=== PATIENT | female | born 1970 | race Caucasian/White ===

== ENCOUNTER 2020-05-07 08:03 | Outpatient (CLI) | payer BC, SELFPAY ==
--- NOTE | ~2020-05-07 | MM_ITS ---
EXAMINATION: MM screening mike BI w felipe HISTORY: Screening TECHNIQUE: Craniocaudal and mediolateral oblique 3-D tomosynthesis images were obtained and synthetic 2-D images were generated. CAD analysis was submitted and interpreted. COMPARISON: Comparison to multiple prior studies sequentially, with oldest reviewed study dated 08/20. BREAST PARENCHYMAL COMPOSITION: The breasts are heterogeneously dense, which may obscure small masses . FINDINGS: There is no evidence of suspicious mass, calcification, or architectural distortion to sugg est malignancy in either breast. There has been no suspicious interval change. IMPRESSION: 1. No mammographic evidence of malignancy. 2. Recommend routine screening mammography in one year. BI-RADS Category 1: Negative Reviewed, dictated and finalized at location A. L VIAL SETTER
== END 2020-05-07 08:04 | disposition home or self-care (01) ==
PROVIDERS: PCP Family Medicine; Visit Provider Obstetrics & Gynecology
DX: Z12.31 Encounter for screening mammogram for malignant neoplasm of breast (principal)
CPT/HCPCS: 77063; 77067

== ENCOUNTER 2021-07-09 07:54 | Outpatient (CLI) | payer BC, SELFPAY ==
--- NOTE | ~2021-07-09 | MM_ITS ---
EXAMINATION: MM screening mike BI w felipe HISTORY: Screening TECHNIQUE: Craniocaudal and mediolateral oblique 3-D tomosynthesis images were obtained and synthetic 2-D images were generated. CAD analysis was submitted and interpreted. COMPARISON: Comparison to multiple prior studies sequentially, with oldest reviewed study dated 08/26. BREAST PARENCHYMAL COMPOSITION: There are scattered areas of fibroglandular density. FINDINGS: There is no evidence of suspicious mass, calcification, or architectural distortion to sugg est malignancy in either breast. There has been no suspicious interval change. IMPRESSION: 1. No mammographic evidence of malignancy. 2. Recommend routine screening mammography in one year. BI-RADS Category 1: Negative Reviewed, dictated and finalized at location A.
== END 2021-07-09 07:55 | disposition home or self-care (01) ==
PROVIDERS: PCP Family Medicine; Visit Provider Obstetrics & Gynecology
DX: Z12.31 Encounter for screening mammogram for malignant neoplasm of breast (principal)
CPT/HCPCS: 77063; 77067

== ENCOUNTER 2021-11-21 09:25 | Emergency (ER) | payer BC, SELFPAY ==
[2021-11-21 09:32] VITALS: BP 138/97; PULSE 99; RESP 16; TEMP 37; O2SAT 100
--- NOTE | 2021-11-21 09:32 | ED.URI ---
HPI - URI/Sore Throat General Chief Complaint: Upper Respiratory Infection Stated Complaint: sore throat Time Seen by Provider: 11/21/21 09:32 Source: patient and RN notes reviewed History of Present Illness HPI Narrative: Patient is a 51-year-old female who presents the urgent care with complaints of body aches, fatigue, sore throat, bilateral otalgia. Patient states that it started on Sunday and she has been taking Tylenol, ibuprofen and DayQuil. Patient states her main concern is a severe sore throat. Denies of any ill exposures. Denies any history of COVID positive test. Patient states she did take an at home COVID test on Sunday, which was negative. No other acute complaints. No acute distress noted. Patient aware of the plan of care. Some parts of this dictation were generated by voice recognition software and may contain typographical and/or grammatical inaccuracies. Related Data Home Medications Medication Instructions Recorded Confirmed estradiol 1 mg tablet 1 mg PO DAILY 11/21/21 11/21/21 Allergies Allergy/AdvReac Type Severity Reaction Status Date / Time Penicillins Allergy Mild Unknown Verified 11/21/21 09:41 Sulfa (Sulfonamide Allergy Mild Unknown Verified 11/21/21 09:41 Antibiotics) Review of Systems Review of Systems: CONSTITUTIONAL: Denies fever, chills, or sweats. EYES: Denies visual changes, redness, or discharge. ENT: Denies rhinorrhea, congestion,. Reports of severe sore throat and bilateral otalgia CARDIOVASCULAR: Denies chest pain, palpitations, or edema. RESPIRATORY: Denies cough or dyspnea. GASTROINTESTINAL: Denies abdominal pain, nausea, vomiting, or diarrhea. GENITOURINARY: Denies dysuria or hematuria. SKIN: Denies rash or itching. MUSCULOSKELETAL: Denies back pain, joint pain. Reports of fatigue and body aches NEUROLOGIC: Denies headache, numbness, or weakness. All other systems reviewed are negative, except as documented in HPI. [facility] Past Medical History Medical History (Updated 11/21/21 @ 09:55 by CHRISTEL Peng) Asthma Bronchitis Endometriosis Migraines Ovarian cyst Pneumonia induced hypertension UTI (urinary tract infection) Surgical History Surgical History Endometriosis determined by laparoscopy Hx of appendectomy Family History Family History Mother Diabetes mellitus Family history of elevated blood lipids Father Family history of elevated blood lipids CHF (congestive heart failure) Grandparent Family history of cardiovascular disease Social History Social History Smoking status: Current every day smoker Tobacco type: cigarettes Second hand tobacco smoke exposure: Yes Alcohol intake: current Gender identity (if verbalized by the patient): Female Comments At the time of my signature, I reviewed and agree with the nursing past medical, surgical, social, and family history. There is no relevant family history pertinent to the patient complaint. Exam Narrative: GENERAL: This is a well-nourished, well-developed patient, in no apparent distress. Appears fatigued HEAD: normocephalic, atraumatic. EYES: PERRL. Sclera clear/white. Vision is grossly intact. EARS: External ears normal, auditory canals clear and without drainage, TMs normal without perforation. Hearing grossly intact. NOSE: External nose normal with no obvious nasal discharge, nares without redness, no rhinorrhea. THROAT: Mucous membranes moist, posterior pharynx clear. Mild postnasal drainage NECK: Neck supple, non-tender without lymphadenopathy CARDIOVASCULAR: Regular rate and rhythm without murmurs, gallops, or rubs. RESPIRATORY: Clear to auscultation. Breath sounds equal bilaterally. No wheezes, rales, or rhonchi. SKIN: warm, intact with no suspicious lesions or rash, good texture and tur
== END 2021-11-21 10:12 | disposition home or self-care (01) ==
PROVIDERS: Emergency Provider Nurse Practitioner Family; PCP Family Medicine
DX: U07.1 COVID-19 (principal); N80.9 Endometriosis, unspecified
CPT/HCPCS: 87426; 99213; C9803; G0463

== ENCOUNTER 2022-02-02 18:22 | Emergency (ER) | payer BC, SELFPAY ==
[2022-02-02 18:24] VITALS: BP 143/84; PULSE 81; RESP 18; TEMP 36.3; O2SAT 100
[2022-02-02 19:01] LABS: Basophils Percent Auto 0.2 % (0.2-1.2); Eosinophils Absolute Auto 0.1 K/mm3 (0-0.3); Eosinophils Percent Auto 0.6 % (0-4.4); Hematocrit 40.3 % (37.0-47.0); Hemoglobin 13.7 g/dL (12.0-15.0); Immature Granulocyte Absolute 0.03 K/mm3 (0.00-0.031); Immature Granulocyte Percent A 0.3 % (0-0.5); Lymphocytes Absolute Auto 2.18 K/mm3 (0.9-3.2); Lymphocytes Percent Auto 23.4 % (18.3-44.2); Mean Corpuscular Hemoglobin 30.9 pg (26-34); Mean Platelet Volume 10.7 fl (7.4-10.4); Monocytes Absolute Auto 0.3 K/mm3 (0.1-0.6); Monocytes Percent Auto 3.3 % (2.6-8.5); Neutrophils Absolute Auto 6.7 K/mm3 (1.3-6.7); Neutrophils Percent Auto 72.2 % (45.5-73.1); Platelet Count Result 234 k/mm3 (150-375); Red Blood Count 4.43 M/mm3 (4.2-5.4); Red Cell Distribution Width 11.9 % (11.5-14.5); White Blood Count 9.3 K/mm3 (4.5-10.0)
[2022-02-02 19:18] LABS: Alanine Aminotransferase 24 U/L (6-35); Albumin Level 4.1 g/dL (3.5-5.1); Alkaline Phosphatase 62 U/L (38-126); Anion Gap 12 mmol/L (8-16); Aspartate Amino Transferase 29 U/L (14-36); Bilirubin,Total 0.4 mg/dL (0.2-1.3); Blood Urea Nitrogen 13 mg/dL (7-17); Calcium 8.5 mg/dL (8.4-10.2); Carbon Dioxide 26 mmol/L (22-30); Chloride 103 mmol/L (98-107); Estimated CRCL calculation 69 ml/min; Estimated Glomerular Filt Rate > 60; Glucose 122 mg/dL (65-110); Lipase 85 U/L (23-300); Potassium 3.5 mmol/L (3.4-5.0); Sodium 141 mmol/L (137-145)
[2022-02-02 20:35] LABS: Add Urine Microscopic? YES; Appearance Urine Cloudy (Clear); Bilirubin Urine Negative (Negative); Blood Urine 3+ (Negative); Color Urine Amber (Yellow); Glucose Urine UA Negative (Negative); Ketones Urine Negative (Negative); Leukocyte Esterase Ur Negative LEU/UL (Negative); Mucus Urine Heavy /lpf; Nitrate Urine Negative (Negative); Protein Urine 2+ mg/dL (Negative); RBC Urine >75 /hpf (0-2); Squamous Epithelial Cell Urine Many /hpf (Few); Urobilinogen Urine Negative mg/dL (<2.0); WBC Urine 31-50 /hpf
[2022-02-02 20:38] LABS: Specific Grav Ur 1.032 (1.001-1.035)
--- NOTE | 2022-02-02 21:17 | PC.NURSE ---
2104 Called waiting room no response. 2115 Called waiting room no response.
== END 2022-02-02 21:48 | disposition left against medical advice (07) ==
PROVIDERS: Emergency Provider Emergency Medicine; PCP Family Medicine
DX: N93.9 Abnormal uterine and vaginal bleeding, unspecified (principal)
CPT/HCPCS: 36415; 80053; 81001; 83690; 85025; 87086; 87088; 99199

== ENCOUNTER 2022-05-12 08:30 | Outpatient (CLI) | payer BC, SELFPAY ==
[2022-05-12 19:43] LABS: Cholesterol 252 mg/dL (0-200); HDL Direct 50 mg/dL; Triglycerides 192 mg/dL (<150)
[2022-05-12 19:58] LABS: LDL Cholesterol Direct 138 mg/dL
[2022-05-12 20:25] LABS: Free T4 Free Thyroxine 0.88 ng/mL (0.78-2.19); Vitamin D 25 Hydroxy 37.3 ng/mL
== END 2022-05-12 08:31 | disposition home or self-care (01) ==
LOC: ANHGOSHLAB 08:32
PROVIDERS: PCP Family Medicine; Visit Provider Family Medicine
DX: R53.83 Other fatigue (principal); R73.9 Hyperglycemia, unspecified; Z13.220 Encounter for screening for lipoid disorders; E55.9 Vitamin D deficiency, unspecified
CPT/HCPCS: 36415; 80061; 82306; 83036; 84439; 84443

== ENCOUNTER 2022-09-21 07:25 | Outpatient (CLI) | payer BC, SELFPAY ==
--- NOTE | ~2022-09-21 | MM_ITS ---
EXAMINATION: MM screening mike BI w felipe HISTORY: Screening mammogram TECHNIQUE: Craniocaudal and mediolateral oblique 3-D tomosynthesis images were obtained and synthetic 2-D images were generated. CAD analysis was submitted and interpreted. COMPARISON: July 2021, May 07, 2020, May 02, 2019 bilateral screening mammogram examinations BREAST PARENCHYMAL COMPOSITION: The breasts are heterogeneously dense, which may obscure small masses . FINDINGS: There is a biopsy marker on the left; history of prior benign left breast biopsy. There is no evidence of suspicious mass, calcification, or architectural distortion to suggest malignancy in e ither breast. There has been no suspicious interval change. IMPRESSION: 1. No mammographic evidence of malignancy. 2. Recommend routine screening mammography in one year. BI-RADS Category 1: Negative Reviewed, dictated and finalized at location A.
== END 2022-09-21 07:26 | disposition home or self-care (01) ==
LOC: ANHIMG 07:27
PROVIDERS: PCP Family Medicine; Visit Provider Obstetrics & Gynecology
DX: Z12.31 Encounter for screening mammogram for malignant neoplasm of breast (principal)
CPT/HCPCS: 77063; 77067

== ENCOUNTER 2023-09-25 08:09 | Outpatient (CLI) | payer BC, SELFPAY ==
[2023-09-25 12:57] LABS: Basophils Absolute Auto 0.1 K/mm3 (0.0-0.1); Basophils Percent Auto 1.2 % (0.2-1.2); Eosinophils Absolute Auto 0.2 K/mm3 (0-0.3); Eosinophils Percent Auto 4.2 % (0-4.4); Hematocrit 41.7 % (37.0-47.0); Hemoglobin 13.5 g/dL (12.0-15.0); Immature Granulocyte Absolute 0.01 K/mm3 (0.00-0.031); Immature Granulocyte Percent A 0.2 % (0-0.5); Lymphocytes Absolute Auto 1.38 K/mm3 (0.9-3.2); Lymphocytes Percent Auto 32.5 % (18.3-44.2); Mean Corpuscular HGB Conc 32.4 g/dl (32-36); Mean Corpuscular Hemoglobin 30.8 pg (26-34); Mean Platelet Volume 11.4 fl (7.4-10.4); Monocytes Absolute Auto 0.3 K/mm3 (0.1-0.6); Monocytes Percent Auto 7.5 % (2.6-8.5); Neutrophils Absolute Auto 2.3 K/mm3 (1.3-6.7); Neutrophils Percent Auto 54.4 % (45.5-73.1); Platelet Count Result 214 k/mm3 (150-375); Red Blood Count 4.39 M/mm3 (4.2-5.4); Red Cell Distribution Width 11.9 % (11.5-14.5); White Blood Count 4.3 K/mm3 (4.5-10.0)
[2023-09-25 13:11] LABS: Alanine Aminotransferase 24 U/L (6-35); Albumin Level 4.3 g/dL (3.5-5.1); Alkaline Phosphatase 60 U/L (38-126); Anion Gap 6 mmol/L (4-12); Aspartate Amino Transferase 45 U/L (14-36); Bilirubin,Total 0.5 mg/dL (0.2-1.3); Blood Urea Nitrogen 16 mg/dL (7-17); Calcium 9.3 mg/dL (8.4-10.2); Carbon Dioxide 29 mmol/L (22-30); Chloride 106 mmol/L (98-107); Cholesterol 241 mg/dL (0-200); Estimated Glomerular Filt Rate > 60; Glucose 79 mg/dL (65-110); HDL Direct 42 mg/dL; Potassium 4.9 mmol/L (3.4-5.0); Sodium 141 mmol/L (137-145); Triglycerides 244 mg/dL (<150)
[2023-09-25 13:16] LABS: LDL Cholesterol Direct 155 mg/dL
[2023-09-25 13:35] LABS: Thyroid Stimulating Hormone 0.023 uIU/mL (0.465-4.680)
[2023-09-25 13:51] LABS: Hemoglobin A1C 5.2 % (<5.7)
[2023-09-25 14:07] LABS: Free T4 Free Thyroxine 0.88 ng/mL (0.78-2.19); Vitamin D 25 Hydroxy 49.3 ng/mL
== END 2023-09-25 08:10 | disposition home or self-care (01) ==
LOC: ANHGOSHLAB 08:10
PROVIDERS: PCP Emergency Medicine; Visit Provider Family Medicine
DX: E78.5 Hyperlipidemia, unspecified (principal); E55.9 Vitamin D deficiency, unspecified; R53.83 Other fatigue; R73.9 Hyperglycemia, unspecified
CPT/HCPCS: 36415; 80053; 80061; 82306; 83036; 84439; 84443; 85025

== ENCOUNTER 2023-11-22 07:21 | Outpatient (CLI) | payer BC, SELFPAY ==
--- NOTE | ~2023-11-22 | MM_ITS ---
EXAMINATION: MM screening mike BI w felipe HISTORY: Screening TECHNIQUE: Craniocaudal and mediolateral oblique 3-D tomosynthesis images were obtained and synthetic 2-D images were generated. CAD analysis was submitted and interpreted. COMPARISON: Comparison to multiple prior studies sequentially, with oldest reviewed study dated 05/07. BREAST PARENCHYMAL COMPOSITION: Not dense: There are scattered areas of fibroglandular density. FINDINGS: There are developing asymmetries in the lower central aspect of the right breast, middle th ird. The left breast is stable without evidence for malignancy. IMPRESSION: 1. Developing right breast asymmetries. 2. Additional mammographic views and possible breast ultrasound are recommended. BI-RADS Category 0: Incomplete: Needs additional imaging evaluation. Reviewed, dictated and finalized at location B. IMPRESSION: 1. Developing right breast asymmetries. 2. Additional mammographic views and possible breast ultrasound are recommended . BI-RADS Category 0: Incomplete: Needs additional imaging evaluation.
== END 2023-11-22 07:22 | disposition home or self-care (01) ==
LOC: ANHIMG 07:22
PROVIDERS: PCP Emergency Medicine; Visit Provider Obstetrics & Gynecology
DX: Z12.31 Encounter for screening mammogram for malignant neoplasm of breast (principal); N64.89 Other specified disorders of breast
CPT/HCPCS: 77063; 77067

== ENCOUNTER 2023-12-04 08:11 | Outpatient (CLI) | payer BC, SELFPAY ==
[2023-12-04 13:13] LABS: Alanine Aminotransferase 20 U/L (6-35); Albumin Level 4.2 g/dL (3.5-5.1); Alkaline Phosphatase 60 U/L (38-126); Anion Gap 12 mmol/L (4-12); Aspartate Amino Transferase 39 U/L (14-36); Bilirubin,Total 0.6 mg/dL (0.2-1.3); Blood Urea Nitrogen 17 mg/dL (7-17); Calcium 9.2 mg/dL (8.4-10.2); Carbon Dioxide 25 mmol/L (22-30); Chloride 102 mmol/L (98-107); Estimated Glomerular Filt Rate > 60; Glucose 73 mg/dL (65-110); Potassium 3.9 mmol/L (3.4-5.0); Sodium 139 mmol/L (137-145)
[2023-12-04 13:40] LABS: Thyroid Stimulating Hormone < 0.015 uIU/mL (0.465-4.680); Total Triiodothyronine (T3) 1.31 NG/ML (0.97-1.69)
[2023-12-04 14:42] LABS: Free T4 Free Thyroxine 0.89 ng/mL (0.78-2.19)
== END 2023-12-04 08:12 | disposition home or self-care (01) ==
LOC: ANHGOSHLAB 08:13
PROVIDERS: PCP Family Medicine; Visit Provider Emergency Medicine
DX: R94.6 Abnormal results of thyroid function studies (principal); R74.8 Abnormal levels of other serum enzymes
CPT/HCPCS: 36415; 80053; 84439; 84443; 84480

== ENCOUNTER 2023-12-27 14:05 | Outpatient (CLI) | payer BC, SELFPAY ==
[2023-12-27 19:32] LABS: Thyroid Stimulating Hormone 0.869 uIU/mL (0.465-4.680)
== END 2023-12-27 14:06 | disposition home or self-care (01) ==
LOC: ANHGOSHLAB 14:06
PROVIDERS: PCP Family Medicine; Visit Provider Family Medicine
DX: R94.6 Abnormal results of thyroid function studies (principal)
CPT/HCPCS: 36415; 84443

== ENCOUNTER 2024-01-02 14:06 | Outpatient (CLI) | payer BC, SELFPAY ==
--- NOTE | ~2024-01-02 | MMUS_ITS ---
EXAMINATION: US breast RT complete, MM diagnostic mike RT w felipe HISTORY: Follow-up right breast asymmetries TECHNIQUE: Additional 3-D tomosynthesis images of the right breast were performed and synthetic 2-D i mages were generated. CAD analysis was submitted and interpreted. High resolution complete right jun st ultrasound was performed. COMPARISON: Comparison to multiple prior studies sequentially, with oldest reviewed study dated 05/07. BREAST PARENCHYMAL COMPOSITION: Not dense: There are scattered areas of fibroglandular density. FINDINGS: MAMMOGRAPHIC FINDINGS: There are no suspicious masses, calcifications or architectural distortion to suggest malignancy. ULTRASOUND: Complete US of all 4 quadrants of the right breast/s and retroareolar region was reviewed. Normal het erogeneous echotexture without focal solid or cystic mass. IMPRESSION: 1. No evidence for malignancy in the right breast. 2. Routine yearly screening mammogram and regular clinical breast examination are recommended. BI-RADS Category 1: Negative Reviewed, dictated and finalized at location B. IMPRESSION: 1. No evidence for malignancy in the right breast. 2. Routine yearly screening mammogram and regular clinical breast examination a re recommended. BI-RADS Category 1: Negative
== END 2024-01-02 14:07 | disposition home or self-care (01) ==
LOC: ANHIMG 14:07
PROVIDERS: PCP Family Medicine; Visit Provider Obstetrics & Gynecology
DX: R92.8 Other abnormal and inconclusive findings on diagnostic imaging of breast (principal)
CPT/HCPCS: 76641; 77061; 77065; G0279

== ENCOUNTER 2024-01-08 14:45 | Outpatient (CLI) | payer BC, SELFPAY ==
[2024-01-08 20:04] LABS: Vitamin D 25 Hydroxy 36.2 ng/mL
[2024-01-08 20:08] LABS: Basophils Absolute Auto 0.1 K/mm3 (0.0-0.1); Basophils Percent Auto 1.1 % (0.2-1.2); Eosinophils Absolute Auto 0.1 K/mm3 (0-0.3); Eosinophils Percent Auto 1.8 % (0-4.4); Hematocrit 40.5 % (37.0-47.0); Hemoglobin 13.1 g/dL (12.0-15.0); Immature Granulocyte Absolute 0.01 K/mm3 (0.00-0.031); Immature Granulocyte Percent A 0.2 % (0-0.5); Lymphocytes Absolute Auto 2.11 K/mm3 (0.9-3.2); Lymphocytes Percent Auto 31.8 % (18.3-44.2); Mean Corpuscular HGB Conc 32.3 g/dl (32-36); Mean Corpuscular Hemoglobin 30.5 pg (26-34); Mean Corpuscular Volume 94.4 fl (80-100); Mean Platelet Volume 11.3 fl (7.4-10.4); Monocytes Absolute Auto 0.4 K/mm3 (0.1-0.6); Monocytes Percent Auto 5.9 % (2.6-8.5); Neutrophils Absolute Auto 3.9 K/mm3 (1.3-6.7); Neutrophils Percent Auto 59.2 % (45.5-73.1); Platelet Count Result 246 k/mm3 (150-375); Red Blood Count 4.29 M/mm3 (4.2-5.4); White Blood Count 6.6 K/mm3 (4.5-10.0)
== END 2024-01-08 14:46 | disposition home or self-care (01) ==
LOC: ANHGOSHLAB 14:46
PROVIDERS: PCP Family Medicine; Visit Provider Family Medicine
DX: R53.83 Other fatigue (principal); Z78.0 Asymptomatic menopausal state
CPT/HCPCS: 36415; 82306; 82607; 85025

== ENCOUNTER 2024-07-16 13:44 | Outpatient (NON) | payer BC, SELFPAY ==
--- OUTSIDE RECORDS SUMMARY | 2024-07-16 15:19 | XMS_ITS | Clinical Summary ---
Author Organization [facility] [address] [place] [address] [place] [address] Care Team Providers Care Veneer Drier Feeder Name Role Phone Jaswant De La Paz MD Primary Care Provider [phone] Allergies Active Allergy Reactions Criticality Noted Date Comments Penicillin G Rash Medium 12/01/2019 Sulfa (Sulfonamide Antibiotics) Rash Medium 11/08 Medications omeprazole (PriLOSEC) 40 mg capsule TK 1 C PO D 0 Active spironolactone (ALDACTONE) 25 mg tablet TK 1 T PO D 0 Active doxycycline hyclate 100 mg capsule TK 1 C PO BID 0 Active mometasone-form oterol (DULERA 100) 100-5 mcg/actuation inhaler Inhale 2 puffs 2 (two) times a day Rinse mouth with water after use. Do not swallow. Active albuterol 2.5 mg /3 mL (0.083 %) nebulizer solution Take 2.5 mg by nebulization every 6 (six) hours as needed for wheezing Active Active Problems No known active problems Surgical History Surgery Date Site/Laterality Comments APPENDECTOMY Medical History Medical History Date Comments Asthma Family History Medical History Relation Name Comments Diabetes Brother Heart disease Father Hypertension Father Arthritis Mother Diabetes Mother Stroke Paternal Grandfather Relation Name Status Comments Brother Father Mother Paternal Grandfather Social History Tobacco Use Types Packs/Day Years Used Date Smoking Tobacco: Never Smokeless Tobacco: Never Tobacco Cessation:Counseling Given: Not Answered Alcohol Use Standard Drinks/Week Comments Yes 0 (1 standard drink = 0.6 oz pur e alcohol) Personal Safety Answer Date Recorded Getting School Help Needed Not on file 03/27 Comments Unknown Sex and Gender Information Value Date Recorded Sex Assigned at Not on file Legal Sex Female 7:57 PM MARINE EQUIPMENT DESIGN ENGINEER Gender Identity Not on file Sexual Orientation Not on file Obstetrics History Last Filed Vital Signs Vital Sign Reading Time Taken Comments Blood Pressure 138/73 05/04/2023 7:59 AM MARINE EQUIPMENT DESIGN ENGINEER Pulse 89 05/04/2023 7:59 AM MARINE EQUIPMENT DESIGN ENGINEER Temperature 36.9 C (98.4 F) 12/01/2019 9:02 AM CDT Respiratory Rate - - Oxygen Saturation 98% 05/04/2023 7:59 AM MARINE EQUIPMENT DESIGN ENGINEER Inhaled Oxygen Concentration - - Weight 93.4 kg (206 lb) 12/01/2019 9:02 AM CDT Height 175.3 cm (5' 9 ) 12/01/2019 9:02 AM CDT Body Mass Index 30.42 12/01/2019 9:02 AM CDT Plan of Treatment Health Maintenance Due Date Last Done Comments Breast Cancer Screening-Mammogram 1972 Cervical Cancer Screening 1972 Colon Cancer Screening-Colonoscopy 1972 Depression Screening 1972 Hepatitis C Screening 1972 DTaP/Tdap/Td Vaccine (1 - Tdap) 02/12/1983 Hepatitis B Screening 02/12/1990 Regular Well Visit/Exam 18-64 02/12/1990 Zoster Vaccine (1 of 2) 02/12/2022 Influenza Vaccine (Season Ended) 2024 03/10/20 19 Pneumococcal vaccine <65 Aged Out 03/10/2019 No longer eligible based on patient's age to complete this topic Insurance [facility] Care Teams Veneer Drier Feeder Relationship Specialty Start Date End Date Jaswant De La Paz MD [address] [place] [address] PCP - General Family Medicine 11/24/19
--- OUTSIDE RECORDS SUMMARY | 2024-07-16 15:19 | XMS_ITS | Referral Summary ---
Author Organization [facility] [address] [place] [address] [place] [id number] Care Team Providers Care Dietitian Therapeutic Name Role Phone Jaswant De La Paz MD Primary Care Provider [phone] Allergies Active Allergy Reactions Criticality Noted Date [...] Active Active Problems No known active problems Social History Tobacco Use Types Packs/Day Years [...] on file Legal Sex Female 7:57 PM PIPING SUPERVISOR Gender Identity Not on file Sexual Orientation Not on file Last Filed Vital Signs Vital Sign Reading Time Taken Comments Blood Pressure 138/73 05/04/2023 7:59 AM PIPING SUPERVISOR Pulse 89 05/04/2023 7:59 AM PIPING SUPERVISOR Temperature 36.9 C (98.4 F) 12/01/2019 9:02 AM CDT Respiratory Rate - - Oxygen Saturation 98% 05/04/2023 7:59 AM PIPING SUPERVISOR Inhaled Oxygen Concentration - - Weight 93.4 kg (206 lb) 12/01/2019 9:02 AM CDT Height 175.3 cm (5' 9 ) 12/01/2019 9:02 AM CDT Body Mass Index 30.42 12/01/2019 9:02 AM CDT Plan of Treatment Not on file [place] [employer] [place] [employer] [place] Care Teams Dietitian Therapeutic Relationship Specialty Start Date End Date Jaswant De La Paz MD [address] [place] [address] PCP - General Family Medicine 11/24/19
--- OUTSIDE RECORDS SUMMARY | 2024-07-16 15:19 | XMS_ITS | Encounter Summary ---
Author Organization [facility] Address [address] [place] [address] Care Team Providers Care Production Drilling Machine Operator Name Role Phone Jaswant De La Paz MD Primary Care Provider [phone] Encounter Details Date Type Department Care Team (Late st Contact Info) Description 02/16/2023 Lab Requisition [facility] - DermPath Lab [address] [place] [id number] Isreal Clement Jr., MD [address] [facility] [address] [facility] [address] [place] [address] Social History Tobacco Use Types Packs/Day Years Used Date Smoking Tobacco: Never Assessed Sex and Gender Information Value Date Recorded Sex Assigned at Not on file Gender Identity Not on file Sexual Orientation Not on file documented as of this encounter Plan of Treatment Not on file documented as of this encounter Procedures Procedure Name Priority Date/Time Associated Diagnosis Comments DERMATOPATHOLOGY Routine 02/15/2023 12:0 0 AM INTERNET SITE DESIGNER documented in this encounter Results * DERMATOPATHOLOGY (02/15/2023 12:00 AM INTERNET SITE DESIGNER) Case Report Dermatopathology Report Case: [id number] Authorizing Provider: Isreal Clement Jr., MD Collected: 02/15/2023 12:00 AM Ordering Location: [facility] Received: 02/19/2023 07:08 AM Pathologist: Geovanni Walsh MD Specimen: Skin, mid frontal scalp 3 4:04 PM INTERNET SITE DESIGNER DERMATOPATHOLOGY LABORATORY Final Diagnosis Specimen A. SKIN, mid frontal scalp: BASAL CELL CARCINOMA, KERATOTIC TYPE (C44.41) 3 4:04 PM INTERNET SITE DESIGNER DERMATOPATHOLOGY LABORATORY Clinical History Basal Cell Carcinoma vs Dermal Nevus vs. Squamous Cell Carcinoma vs. Hypertrophic scar 3 4:04 PM [facility] DERMATOPATHOLOGY LABORATORY Gross Description Specimen A: Received is one formalin filled container labeled with the patient's name and designated mid frontal scalp. The specimen consists of a (2) pieces shave biopsy measuring 5x6x1, 5x5x1 mm. Jar 0. 3 4:04 PM [facility] DERMATOPATHOLOGY LABORATORY Microscopic Description Specimen A. SKIN, mid frontal scalp: The dermis is infiltrated by nests of basaloid cells that show peripheral palisading and are associated with fibromyxoid stroma. Both mitotic figures and necrotic cells are identified. There are also areas with squamous differentiation and keratinization within the nests. 3 4:04 PM [facility] DERMATOPATHOLOGY LABORATORY Disclaimer An external and internal positive and negative controls are appropriate for the histochemical, immunohistochemical and immunofluorescence stain(s) in this case (if any), except where stated explicitly. The performance characteristics of the stain(s) cited in this report were developed and its performance characteristic determined by the Dermatopathology Laboratory at [facility], directed by Dr. Naga Walsh. These tests need not be, and therefore are not, approved by the [place] Food and Drug Administration. The tests are used for clinical purposes. Billing Codes Specimen Charges Stain Charges 65717 1 3 4:04 PM [facility] DERMATOPATHOLOGY LABORATORY Embedded Images 3 4:04 PM [facility] DERMATOPATHOLOGY LABORATORY Pathology/Cytolog y TISSUE SPECIMEN FROM SKIN / Unknown 02/15/2023 02/19/2023 7:08 AM [facility] Isreal Clement Jr., MD LAB - PATHOLOGY /CYTOLOGY ORDERABLES DERMATOPATHOLOGY LABORATORY [facility] - Department of Dermatology [facility] Medicine [address] [place] [address], [address] [phone] documented in this encounter Visit Diagnoses Not on filedocumented in this encounter Care Teams Production Drilling Machine Operator Relationship Specialty Start Date End Date Jaswant De La Paz MD [address] [place] [address] PCP - General 10/01/18 documented as of this encounter
--- OUTSIDE RECORDS SUMMARY | 2024-07-16 15:19 | XMS_ITS | Clinical Summary ---
Author Organization [facility] [employer] Address [address] [place] [address] Care Team Providers Care Research Physiologist Name Role Phone Jaswant De La Paz MD Primary Care Provider [phone] Source Comments [facility] [employer],non-owned Affiliates and Associated Physician Practices is amultiple site organization consisting of ambulatory clinics and hospital sitesin [place], [place], [place] and [place]. This disclosure is being madepursuant to the Care Everywhere program and may not contain all information available regarding this patient. Last updated 17.[facility] [employer] Social History Tobacco Use Types Packs/Day Years Used Date Smoking Tobacco: Never Assessed Sex and Gender Information Value Date Recorded Sex Assigned at Not on file Gender Identity Not on file Sexual Orientation Not on file Plan of Treatment Health Maintenance Due Date Last Done Comments COLOGUARD (AGES 45-75) - COL ON CA SCREENING 1972 COLON MONITORING 1972 COLONOSCOPY - COLON CA SCREENING 1972 CT COLONOGRAPHY - COLON CA SCREENING 1972 Colorectal Cancer Screening 1972 FIT - COLON CA SCREENING 1972 FLEX SIG - COLON CA SCREENING 1972 LIPID TESTING 1972 MAMMOGRAM 1972 PAP SMEAR 1972 HIV SCREENING 02/12/1987 HEPATITIS C SCREENING 02/08/1990 DTAP/TDAP/TD VACCINES (1 - Tdap) 02/12/1991 HEPATITIS B VACCINE (1 of 3 - 19+ 3-dose series) 02/12/1991 PNEUMOCOCCAL VACCINE 50+ (1 of 1 - PCV) 02/12/2022 ZOSTER VACCINE (1 of 2) 02/12/2022 COVID-19 VACCINE ( - 2023-2 5 season) 2023 DEPRESSION SCREENING 04/09/2024 INFLUENZA VACCINE (Season Ended) 2024 HIB VACCINE Aged Out No longer eligi ble based on patient's age to complete this topic HPV VACCINE Aged Out No longer eligi ble based on patient's age to complete this topic MENINGOCOCCAL (Group B) VACC INE SHARED DECISION-MAKING Aged Out No longer eligibl e based on patient's age to complete this topic MENINGOCOCCAL GROUPS A/C/Y/W VACCINE Aged Out No longer eligible b ased on patient's age to complete this topic PNEUMOCOCCAL VACCINE Aged Out No long er eligible based on patient's age to complete this topic Care Teams Research Physiologist Relationship Specialty Start Date End Date Jaswant De La Paz MD [address] [place] [id number] PCP - General 10/01/18
== END 2024-07-16 13:45 | disposition home or self-care (01) ==
LOC: ANHGOSHLAB 13:45
PROVIDERS: PCP Family Medicine; Visit Provider Family Medicine
DX: R30.0 Dysuria (principal)
CPT/HCPCS: 87086

== ENCOUNTER 2024-07-21 16:59 | Outpatient (CLI) | payer BC, SELFPAY ==
--- NOTE | ~2024-07-21 | CT_ITS ---
CT abdomen pelvis wo con Ordering provider: Kenji Ac APRN History: 54 years Female with . Abdominal pain, fever, and urinary retention . Comparison: None. Technique: CT abdomen and pelvis without IV and without oral contrast. Automated exposure control and iterative reconstruction technique were employed. The dose-length product was 453.19 mGy-cm. Findings: VISUALIZED LOWER CHEST: Normal. UPPER ABDOMINAL ORGANS: Liver: Normal. Gallbladder: Normal. Spleen: Normal. Stomach/duodenum: Small sliding hiatus hernia. Pancreas: Normal. Adrenals: Normal. Kidneys: Tiny stone in the left kidney lower pole. PELVIC ORGANS: The bladder is normal. Retroverted uterus. BOWEL AND MESENTERY: Colon: No evidence of diverticulitis. No evidence of appendicitis. Small Bowel: Normal. No obstruction. Peritoneum/mesentery: No free air or free fluid. No mesenteric lymphadenopathy. RETROPERITONEUM: Mild atheromatous disease of the abdominal aorta. No retroperitoneal lymphadenopat hy. MUSCULOSKELETAL: Superficial soft tissues: The superficial soft tissues are normal. Bones: Age appropriate degenerative changes of the spine. Hemangioma in L4. Bilateral hip osteoarthri tic changes more on the left side. IMPRESSION: 1. No evidence of appendicitis, diverticulitis or intestinal obstruction. 2. Left kidney lower pole tiny stone. 3. Small sliding hiatus hernia. Reviewed, dictated and finalized at location A.
--- OUTSIDE RECORDS SUMMARY | 2024-07-21 17:54 | XMS_ITS | Clinical Summary ---
Author Organization [facility] [address] [place] [address] [place] [id number] Care Team Providers Care Health Policy Analyst Name Role Phone Jaswant De La Paz MD Primary Care Provider [phone] Allergies Active Allergy Reactions Criticality Noted Date [...] on file Legal Sex Female 7:57 PM SHOP FOREMAN Gender Identity Not on file Sexual Orientation Not on file Obstetrics History Last Filed Vital Signs Vital Sign Reading Time Taken Comments Blood Pressure 138/73 05/04/2023 7:59 AM SHOP FOREMAN Pulse 89 05/04/2023 7:59 AM SHOP FOREMAN Temperature 36.9 C (98.4 F) 12/01/2019 9:02 AM CDT Respiratory Rate - - Oxygen Saturation 98% 05/04/2023 7:59 AM SHOP FOREMAN Inhaled Oxygen Concentration - - Weight 93.4 [...] patient's age to complete this topic Insurance [facility] Care Teams Health Policy Analyst Relationship Specialty Start Date End Date Jaswant De La Paz MD [address] [place] [address] PCP - General Family Medicine 11/24/19
--- OUTSIDE RECORDS SUMMARY | 2024-07-21 17:54 | XMS_ITS | Clinical Summary ---
Author Organization [facility] [employer] Address [address] [place] [address] Care Team Providers Care Hospital Admissions Officer Name Role Phone Jaswant De La Paz MD Primary Care Provider [phone] Source Comments [facility] [employer],non-owned Affiliates and Associated Physician Practices is amultiple site organization consisting of ambulatory clinics and hospital sitesin [place], [place], [place] and [place]. This disclosure is being madepursuant to the Care Everywhere program and may not contain all information available regarding this patient. Last updated 17.[facility] [employer] Social History Tobacco Use Types Packs/Day Years Used Date Smoking Tobacco: Never Assessed Comments Unknown Sex and Gender Information Value Date Recorded Sex Assigned at Not on file Legal Sex Female 4:08 AM CDT Gender Identity Not on file Sexual Orientation [...] patient's age to complete this topic Insurance [facility] Care Teams Hospital Admissions Officer Relationship Specialty Start Date End Date Jaswant De La Paz MD [address] [place] [id number] PCP - General 10/01/18
--- OUTSIDE RECORDS SUMMARY | 2024-07-21 17:54 | XMS_ITS | Encounter Summary ---
Author Organization [facility] Address [address] [place] [address] Care Team Providers Care Set Up Operator Tool Name Role Phone Jaswant De La Paz MD Primary Care Provider [phone] Encounter Details Date Type Department Care Team (Late st Contact Info) Description 02/16/2023 Lab Requisition [facility] - DermPath Lab [address] [facility] [place] [phone] Isreal Clement Jr., MD [address] [facility] [address] [place] [address] Social History Tobacco Use Types Packs/Day Years [...] Comments DERMATOPATHOLOGY Routine 02/15/2023 12:0 0 AM FLOOR COVERINGS SALESPERSON documented in this encounter Results * DERMATOPATHOLOGY (02/15/2023 12:00 AM FLOOR COVERINGS SALESPERSON) Case Report Dermatopathology Report Case: [id number] Authorizing Provider: Isreal Clement Jr., MD Collected: 02/15/2023 12:00 AM Ordering Location: [facility] DermPath Lab Received: 02/19/2023 07:08 AM Pathologist: Geovanni Walsh MD Specimen: Skin, mid frontal scalp 3 4:04 PM FLOOR COVERINGS SALESPERSON DERMATOPATHOLOGY LABORATORY Final Diagnosis Specimen A. SKIN, mid frontal scalp: BASAL CELL CARCINOMA, KERATOTIC TYPE (C44.41) 3 4:04 PM FLOOR COVERINGS SALESPERSON DERMATOPATHOLOGY LABORATORY Clinical History Basal Cell Carcinoma vs Dermal Nevus vs. Squamous Cell Carcinoma vs. Hypertrophic scar 3 4:04 PM [facility] DERMATOPATHOLOGY LABORATORY Gross Description Specimen A: Received is one formalin filled container labeled with the patient's name and designated mid frontal scalp. The specimen consists of a (2) pieces shave biopsy measuring 5x6x1, 5x5x1 mm. Jar 0. 3 4:04 PM [facility] DERMATOPATHOLOGY LABORATORY Microscopic Description Specimen A. SKIN, mid frontal scalp: The dermis is infiltrated by nests of basaloid cells that show peripheral palisading and are associated with fibromyxoid stroma. Both mitotic figures and necrotic cells are identified. There are also areas with squamous differentiation and keratinization within the nests. 3 4:04 PM [facility] DERMATOPATHOLOGY LABORATORY Disclaimer An external and internal positive and negative controls are appropriate for the histochemical, immunohistochemical and immunofluorescence stain(s) in this case (if any), except where stated explicitly. The performance characteristics of the stain(s) cited in this report were developed and its performance characteristic determined by the Dermatopathology Laboratory at [facility], directed by Dr. Naga Walsh. These tests need not be, and therefore are not, approved by the [place] Food and Drug Administration. The tests are used for clinical purposes. Billing Codes Specimen Charges Stain Charges 88970 1 3 4:04 PM [facility] DERMATOPATHOLOGY LABORATORY Embedded Images 3 4:04 PM [facility] DERMATOPATHOLOGY LABORATORY Pathology/Cytolog y TISSUE SPECIMEN FROM SKIN / Unknown 02/15/2023 02/19/2023 7:08 AM [facility] us Isreal Clement Jr., MD LAB - PATHOLOGY/CYTOLOG Y ORDERABLES Final Result DERMATOPATHOLOGY LABORATORY [facility] - Department of Dermatology [facility] Medicine [address] [place] [address], [address] [place] [address], [facility] [phone] documented in this encounter Visit Diagnoses Not on filedocumented in this encounter Care Teams Set Up Operator Tool Relationship Specialty Start Date End Date Jaswant De La Paz MD [address] [place] [address] PCP - General 10/01/18 documented as of this encounter
--- OUTSIDE RECORDS SUMMARY | 2024-07-21 17:54 | XMS_ITS | Referral Summary ---
Author Organization [facility] [address] [place] [address] [place] [id number] Care Team Providers Care Melting Supervisor Name Role Phone Jaswant De La Paz MD Primary Care Provider [phone] Allergies Active Allergy Reactions Criticality Noted Date [...] on file Legal Sex Female 7:57 PM CONSULTING SERVICES PROJECT MANAGER Gender Identity Not on file Sexual Orientation Not on file Last Filed Vital Signs Vital Sign Reading Time Taken Comments Blood Pressure 138/73 05/04/2023 7:59 AM CONSULTING SERVICES PROJECT MANAGER Pulse 89 05/04/2023 7:59 AM CONSULTING SERVICES PROJECT MANAGER Temperature 36.9 C (98.4 F) 12/01/2019 9:02 AM CDT Respiratory Rate - - Oxygen Saturation 98% 05/04/2023 7:59 AM CONSULTING SERVICES PROJECT MANAGER Inhaled Oxygen Concentration - - Weight 93.4 kg (206 lb) 12/01/2019 9:02 AM CDT Height 175.3 cm (5' 9 ) 12/01/2019 9:02 AM CDT Body Mass Index 30.42 12/01/2019 9:02 AM CDT Plan of Treatment Not on file Insurance [employer] [place] [place] Care Teams Melting Supervisor Relationship Specialty Start Date End Date Jaswant De La Paz MD [address] [place] [place] [address] PCP - General Family Medicine 11/24/19
== END 2024-07-21 17:00 | disposition home or self-care (01) ==
PROVIDERS: PCP Family Medicine; Visit Provider Student in an Organized Health Care Education/Training Program
DX: N20.0 Calculus of kidney (principal); K44.9 Diaphragmatic hernia without obstruction or gangrene
CPT/HCPCS: 74176

== ENCOUNTER 2024-07-22 10:41 | Outpatient (NON) | payer BC, SELFPAY ==
--- OUTSIDE RECORDS SUMMARY | 2024-07-22 11:51 | XMS_ITS | Referral Summary ---
Author Organization [facility] [address] [place] [address] [place] [id number] Care Team Providers Care Dental Technician Apprentice Name Role Phone Jaswant De La Paz MD Primary Care Provider [phone] Allergies Active Allergy Reactions Criticality Noted Date [...] on file Legal Sex Female 7:57 PM CENTER REP Gender Identity Not on file Sexual Orientation Not on file Last Filed Vital Signs Vital Sign Reading Time Taken Comments Blood Pressure 138/73 05/04/2023 7:59 AM CENTER REP Pulse 89 05/04/2023 7:59 AM CENTER REP Temperature 36.9 C (98.4 F) 12/01/2019 9:02 AM CDT Respiratory Rate - - Oxygen Saturation 98% 05/04/2023 7:59 AM CENTER REP Inhaled Oxygen Concentration - - Weight 93.4 kg (206 lb) 12/01/2019 9:02 AM CDT Height 175.3 cm (5' 9 ) 12/01/2019 9:02 AM CDT Body Mass Index 30.42 12/01/2019 9:02 AM CDT Plan of Treatment Not on file Insurance [employer] [place] [place] Care Teams Dental Technician Apprentice Relationship Specialty Start Date End Date Jaswant De La Paz MD [address] [place] [address] PCP - General Family Medicine 11/24/19
--- OUTSIDE RECORDS SUMMARY | 2024-07-22 11:51 | XMS_ITS | Encounter Summary ---
Author Organization [facility] Address [address] [place] [address] Care Team Providers Care Seo Intern Name Role Phone Jaswant De La Paz MD Primary Care Provider [phone] Encounter Details Date Type Department Care Team (Late st Contact Info) Description 02/16/2023 Lab Requisition [facility] - DermPath Lab [address] [facility], [facility] [place] [phone] Isreal Clement Jr., MD [address] [facility] [address] [place] [address] Social History Tobacco Use Types Packs/Day Years [...] Comments DERMATOPATHOLOGY Routine 02/15/2023 12:0 0 AM DRUG DISCOVERY INFORMATICS SPECIALIST documented in this encounter Results * DERMATOPATHOLOGY (02/15/2023 12:00 AM DRUG DISCOVERY INFORMATICS SPECIALIST) Case Report Dermatopathology Report Case: [id number] Authorizing Provider: Isreal Clement Jr., MD Collected: 02/15/2023 12:00 AM Ordering Location: [facility] DermPath Lab Received: 02/19/2023 07:08 AM Pathologist: Geovanni Walsh MD Specimen: Skin, mid frontal scalp 3 4:04 PM DRUG DISCOVERY INFORMATICS SPECIALIST DERMATOPATHOLOGY LABORATORY Final Diagnosis Specimen A. SKIN, mid frontal scalp: BASAL CELL CARCINOMA, KERATOTIC TYPE (C44.41) 3 4:04 PM DRUG DISCOVERY INFORMATICS SPECIALIST DERMATOPATHOLOGY LABORATORY Clinical History Basal Cell Carcinoma [...] characteristic determined by the Dermatopathology Laboratory at [facility], directed by Dr. Naga Walsh. These tests need not be, and therefore are not, approved by the [place] Food and Drug Administration. The tests are used for clinical purposes. Billing Codes Specimen Charges Stain Charges 73745 1 3 4:04 PM [facility] DERMATOPATHOLOGY LABORATORY Embedded Images 3 4:04 PM [facility] DERMATOPATHOLOGY LABORATORY Pathology/Cytolog y TISSUE SPECIMEN FROM SKIN / Unknown 02/15/2023 02/19/2023 7:08 AM [facility] us Isreal Clement Jr., MD LAB - PATHOLOGY/CYTOLOG Y ORDERABLES Final Result DERMATOPATHOLOGY LABORATORY [facility] - Department of Dermatology [facility] Medicine [address] [place] [address], [address] [place] [address], [facility] [phone] documented in this encounter Visit Diagnoses Not on filedocumented in this encounter Care Teams Seo Intern Relationship Specialty Start Date End Date Jaswant De La Paz MD [address] [place] [address] PCP - General 10/01/18 documented as of this encounter
--- OUTSIDE RECORDS SUMMARY | 2024-07-22 11:51 | XMS_ITS | Clinical Summary ---
Author Organization [facility] Address [address] [place] [address] Care Team Providers Care Reading Specialist Name Role Phone Jaswant De La Paz MD Primary Care Provider [phone] Source Comments [facility],non-owned Affiliates and Associated Physician Practices is amultiple site organization consisting of ambulatory clinics and hospital sitesin [place], [place], [place] and [place]. This disclosure is being madepursuant to the Care Everywhere program and may not contain all information available regarding this patient. Last updated 17.[facility] Social History Tobacco Use Types Packs/Day Years [...] patient's age to complete this topic Insurance [facility] Care Teams Reading Specialist Relationship Specialty Start Date End Date Jaswant De La Paz MD [address] [place] [address] PCP - General 10/01/18
--- OUTSIDE RECORDS SUMMARY | 2024-07-22 11:51 | XMS_ITS | Clinical Summary ---
Author Organization [facility] [address] [place] [address] [place] [id number] Care Team Providers Care Laborer Pie Bakery Name Role Phone Jaswant De La Paz MD Primary Care Provider [phone] Allergies Active Allergy Reactions Criticality Noted Date [...] on file Legal Sex Female 7:57 PM ELECTRONIC TRAIN CONTROL TECHNICIAN Gender Identity Not on file Sexual Orientation Not on file Obstetrics History Last Filed Vital Signs Vital Sign Reading Time Taken Comments Blood Pressure 138/73 05/04/2023 7:59 AM ELECTRONIC TRAIN CONTROL TECHNICIAN Pulse 89 05/04/2023 7:59 AM ELECTRONIC TRAIN CONTROL TECHNICIAN Temperature 36.9 C (98.4 F) 12/01/2019 9:02 AM CDT Respiratory Rate - - Oxygen Saturation 98% 05/04/2023 7:59 AM ELECTRONIC TRAIN CONTROL TECHNICIAN Inhaled Oxygen Concentration - - Weight 93.4 [...] patient's age to complete this topic Insurance [facility] Care Teams Laborer Pie Bakery Relationship Specialty Start Date End Date Jaswant De La Paz MD [address] [place] [address] PCP - General Family Medicine 11/24/19
== END 2024-07-22 10:42 | disposition home or self-care (01) ==
LOC: ANHGOSHLAB 10:42
PROVIDERS: PCP Family Medicine; Visit Provider Student in an Organized Health Care Education/Training Program
DX: R39.9 Unspecified symptoms and signs involving the genitourinary system (principal)
CPT/HCPCS: 87086

== ENCOUNTER 2024-11-18 10:17 | Outpatient (CLI) | payer BC, SELFPAY ==
--- OUTSIDE RECORDS SUMMARY | 2024-11-18 11:01 | XMS_ITS | Clinical Summary ---
Author Organization [facility] [address] [place] [address] [place] [phone] Care Team Providers Care Director External Communications Name Role Phone Jaswant De La Paz MD Primary Care Provider [phone] Allergies Active Allergy Reactions Criticality Noted Date [...] on file Legal Sex Female 7:57 PM MOLDING LINE OPERATOR Gender Identity Not on file Sexual Orientation Not on file Obstetrics History Last Filed Vital Signs Vital Sign Reading Time Taken Comments Blood Pressure 138/73 05/04/2023 7:59 AM MOLDING LINE OPERATOR Pulse 89 05/04/2023 7:59 AM MOLDING LINE OPERATOR Temperature 36.9 C (98.4 F) 12/01/2019 9:02 AM CDT Respiratory Rate - - Oxygen Saturation 98% 05/04/2023 7:59 AM MOLDING LINE OPERATOR Inhaled Oxygen Concentration - - Weight 93.4 kg (206 lb) 12/01/2019 9:02 AM CDT Height 175.3 cm (5' 9) 12/01/2019 9:02 AM CDT Body Mass Index [...] Vaccine (1 of 2) 02/12/2022 Influenza Vaccine (#1) 2024 03/10/2019 Pneumococcal vaccine <65 Aged Out 03/10/2019 No longer eligible based on patient's age to complete this topic Insurance [facility] [employer] [place] Care Teams Director External Communications Relationship Specialty Start Date End Date Jaswant De La Paz MD [address] [place] [address] PCP - General Family Medicine 11/24/19
--- OUTSIDE RECORDS SUMMARY | 2024-11-18 11:01 | XMS_ITS | Encounter Summary ---
Author Organization [facility] Address [address] [place] [address] Care Team Providers Care Contract Engineer Name Role Phone Jaswant De La Paz MD Primary Care Provider [phone] Encounter Details Date Type Department Care Team (Late st Contact Info) Description 02/16/2023 Lab Requisition [facility] - DermPath Lab [address] [facility] [facility] [place] [phone] Isreal Clement Jr., MD [address] [facility] [address] [place] [address] Social History Tobacco Use Types Packs/Day Years [...] Comments DERMATOPATHOLOGY Routine 02/15/2023 12:0 0 AM TUBE CARRIER documented in this encounter Results * DERMATOPATHOLOGY (02/15/2023 12:00 AM TUBE CARRIER) Case Report Dermatopathology Report Case: [id number] Authorizing Provider: Isreal Clement Jr., MD Collected: 02/15/2023 12:00 AM Ordering Location: [facility] DermPath Lab Received: 02/19/2023 07:08 AM Pathologist: Geovanni Walsh MD Specimen: Skin, mid frontal scalp 3 4:04 PM TUBE CARRIER DERMATOPATHOLOGY LABORATORY Final Diagnosis Specimen A. SKIN, mid frontal scalp: BASAL CELL CARCINOMA, KERATOTIC TYPE (C44.41) 3 4:04 PM TUBE CARRIER DERMATOPATHOLOGY LABORATORY at [address] TUBE CARRIER Clinical History Basal Cell Carcinoma vs Dermal Nevus vs. Squamous Cell Carcinoma vs. Hypertrophic scar 3 4:04 PM [facility] DERMATOPATHOLOGY LABORATORY Gross Description Specimen A: Received is one formalin filled container labeled with the patient's name and designated mid frontal scalp. The specimen consists of a (2) pieces shave biopsy measuring 5x6x1, 5x5x1 mm. Jar 0. 3 4:04 PM [facility] DERMATOPATHOLOGY LABORATORY Microscopic Description Specimen A. SKIN, mid frontal scalp: The dermis is infiltrated by nests of basaloid cells that show peripheral palisading and are associated with fibromyxoid stroma. Both mitotic figures and necrotic cells are identified. There are also areas with squamous differentiation and keratinization within the nests. 3 4:04 PM [facility] DERMATOPATHOLOGY LABORATORY Disclaimer An external and internal positive and negative controls are appropriate for the histochemical, immunohistochemical and immunofluorescence stain(s) in this case (if any), except where stated explicitly. The performance characteristics of the stain(s) cited in this report were developed and its performance characteristic determined by the Dermatopathology Laboratory at [facility], directed by Dr. Naga Walsh. These tests need not be, and therefore are not, approved by the [place] Food and Drug Administration. The tests are used for clinical purposes. Billing Codes Specimen Charges Stain Charges 92930 1 3 4:04 PM [facility] DERMATOPATHOLOGY LABORATORY Embedded Images 3 4:04 PM [facility] DERMATOPATHOLOGY LABORATORY Pathology/Cytolog y TISSUE SPECIMEN FROM SKIN / Unknown 02/15/2023 02/19/2023 7:08 AM [facility] us Isreal Clement Jr., MD LAB - PATHOLOGY/CYTOLOG Y ORDERABLES Final Result DERMATOPATHOLOGY LABORATORY [facility] - Department of Dermatology [address], [address] [place] [address], [facility] [phone] documented in this encounter Visit Diagnoses Not on filedocumented in this encounter Care Teams Contract Engineer Relationship Specialty Start Date End Date Jaswant De La Paz MD [address] [place] [address] PCP - General 10/01/18 documented as of this encounter
--- OUTSIDE RECORDS SUMMARY | 2024-11-18 11:01 | XMS_ITS | Clinical Summary ---
Author Organization [facility] Address [address] [place] [address] Care Team Providers Care Marine Tower Operator Name Role Phone Jaswant De La Paz MD Primary Care Provider Source Comments [facility],non-owned Affiliates and Associated Physician Practices is amultiple site organization consisting of ambulatory clinics and hospital sitesin [place], [place], [place] and [place]. This disclosure is being madepursuant to the Care Everywhere program and may not contain all information available regarding this patient. Last updated 17.[facility] Social History Tobacco Use Types Packs/Day Years [...] SCREENING 1972 LIPID TESTING 1972 MAMMOGRAM 1972 HIV SCREENING 02/12/1987 HEPATITIS C SCREENING 02/08/1990 DTAP/TDAP/TD VACCINES (1 - Tdap) 02/12/1991 HEPATITIS B VACCINE (1 of 3 - 19+ 3-dose series) 02/12/1991 PAP SMEAR 02/12/1993 PNEUMOCOCCAL VACCINE 50+ (1 of 1 - PCV) 02/12/2022 ZOSTER VACCINE (1 of 2) 02/12/2022 COVID-19 VACCINE (1 - 2023-2 5 season) 2023 DEPRESSION SCREENING 04/09/2024 INFLUENZA VACCINE (#1) 2024 HIB VACCINE Aged Out No longer [...] patient's age to complete this topic Insurance [employer] Care Teams Marine Tower Operator Relationship Specialty Start Date End Date Jaswant De La Paz MD [address] [place], [place] [id number] (work) PCP - General 10/01/18
[2024-11-18 13:29] LABS: Hematocrit 38.4 % (37.0-47.0); Hemoglobin 12.8 g/dL (12.0-15.0); Immature Granulocyte Percent A 0.2 % (0-0.5); Lymphocytes Absolute Auto 1.76 K/mm3 (0.9-3.2); Mean Corpuscular HGB Conc 33.3 g/dl (32-36); Mean Corpuscular Hemoglobin 31.0 pg (26-34); Mean Corpuscular Volume 93.0 fl (80-100); Nucleated Red Blood Cells Absolute Auto 0.000 K/mm3 (0.0-0.012); Nucleated Red Blood Cells Perc 0.0 % (0.0-0.2); Platelet Count Result 232 k/mm3 (150-375); Red Blood Count 4.13 M/mm3 (4.2-5.4); White Blood Count 6.3 K/mm3 (4.5-10.0)
[2024-11-18 13:36] LABS: Alanine Aminotransferase 26 U/L (6-35); Albumin Level 4.3 g/dL (3.5-5.1); Alkaline Phosphatase 60 U/L (38-126); Anion Gap 10 mmol/L (4-12); Aspartate Amino Transferase 42 U/L (14-36); Bilirubin,Total 0.5 mg/dL (0.2-1.3); Blood Urea Nitrogen 17 mg/dL (7-17); Calcium 9.5 mg/dL (8.4-10.2); Carbon Dioxide 25 mmol/L (22-30); Chloride 104 mmol/L (98-107); Cholesterol 255 mg/dL (0-200); Estimated Glomerular Filt Rate > 60; Glucose 81 mg/dL (65-110); HDL Direct 51 mg/dL; Potassium 4.1 mmol/L (3.4-5.0); Sodium 139 mmol/L (137-145); Total Protein 7.4 g/dL (6.3-8.2); Triglycerides 206 mg/dL (<150)
[2024-11-18 14:12] LABS: Thyroid Stimulating Hormone 0.259 uIU/mL (0.465-4.680)
[2024-11-18 14:32] LABS: Vitamin B12 681.0 pg/mL (239-931)
== END 2024-11-18 10:18 | disposition home or self-care (01) ==
LOC: ANHGOSHLAB 10:17
PROVIDERS: PCP Family Medicine; Visit Provider Family Medicine
DX: R41.3 Other amnesia (principal)
CPT/HCPCS: 36415; 80053; 80061; 82607; 84443; 85025; 86430

== ENCOUNTER 2025-02-17 08:50 | Outpatient (CLI) | payer BC, SELFPAY ==
--- NOTE | ~2025-02-17 | MM_ITS ---
EXAMINATION: MM screening mike BI w felipe HISTORY: Screening TECHNIQUE: Craniocaudal and mediolateral oblique 3-D tomosynthesis images were obtained and synthetic 2-D images were generated. CAD analysis was submitted and interpreted. COMPARISON: Comparison to multiple prior studies sequentially, with oldest reviewed study dated 05/07/2020. BREAST PARENCHYMAL COMPOSITION: Dense: The breasts are heterogeneously dense, which may obscure small masses FINDINGS: There are developing asymmetries centered in the lateral aspect of both breasts. There are no discrete masses or architectural distortion. There are no suspicious calcifications. In the upper outer quadrant of the right breast IMPRESSION: 1. Developing bilateral breast asymmetries. 2. Additional mammographic views and possible breast ultrasound are recommended. BI-RADS Category 0: Incomplete: Needs additional imaging evaluation. Reviewed, dictated and finalized at location C. SPECIALIST IMPRESSION: 1. Developing bilateral breast asymmetries. 2. Additional mammographic views and possible breast ultrasound are recommended . BI-RADS Category 0: Incomplete: Needs additional imaging evaluation.
--- OUTSIDE RECORDS SUMMARY | 2025-02-17 09:05 | XMS_ITS | Clinical Summary ---
Author Organization [facility] Address [address] [place] [address] Care Team Providers Care Divorce Mediator Name Role Phone Jaswant De La Paz MD Primary Care Provider [phone] Source Comments [facility],non-owned Affiliates and Associated Physician Practices is amultiple site organization consisting of ambulatory clinics and hospital sitesin [place], [place], [place] and [place]. This disclosure is being madepursuant to the Care Everywhere program and may not contain all information available regarding this patient. Last updated 17.[facility] Social History Tobacco Use Types Packs/Day Years [...] 02/12/2022 ZOSTER VACCINE (1 of 2) 02/12/2022 DEPRESSION SCREENING 04/09/2024 COVID-19 VACCINE ( - 2023-2 5 season) 2024 INFLUENZA VACCINE (#1) 2024 HIB VACCINE Aged [...] this topic Insurance [employer] Care Teams Divorce Mediator Relationship Specialty Start Date End Date Jaswant De La Paz MD [address] [place], [place] [id number] (work) PCP - General 10/01/18
--- OUTSIDE RECORDS SUMMARY | 2025-02-17 09:05 | XMS_ITS | Encounter Summary ---
Author Organization [facility] Address [address] [place] [address] Care Team Providers Care Coal Weigher Name Role Phone Jaswant De La Paz MD Primary Care Provider [phone] Encounter Details Date Type Department Care Team (Late st Contact Info) Description 02/16/2023 Lab Requisition [facility] - DermPath Lab [address] [place] [id number] Isreal Clement Jr., MD [address] [place] [address] Social History Tobacco Use Types Packs/Day Years [...] Comments DERMATOPATHOLOGY Routine 02/15/2023 12:0 0 AM BEATER ROOM SUPERVISOR documented in this encounter Results * DERMATOPATHOLOGY (02/15/2023 12:00 AM BEATER ROOM SUPERVISOR) Case Report Dermatopathology Report Case: [id number] Authorizing Provider: Isreal Clement Jr., MD Collected: 02/15/2023 12:00 AM Ordering Location: [facility] Received: 02/19/2023 07:08 AM Pathologist: Geovanni Walsh MD Specimen: Skin, mid frontal scalp 3 4:04 PM BEATER ROOM SUPERVISOR DERMATOPATHOLOGY LABORATORY Final Diagnosis Specimen A. SKIN, mid frontal scalp: BASAL CELL CARCINOMA, KERATOTIC TYPE (C44.41) 3 4:04 PM BEATER ROOM SUPERVISOR DERMATOPATHOLOGY LABORATORY at [address] BEATER ROOM SUPERVISOR Clinical History Basal Cell Carcinoma vs Dermal Nevus vs. Squamous Cell Carcinoma vs. Hypertrophic scar 3 4:04 PM [facility] DERMATOPATHOLOGY LABORATORY Gross Description Specimen A: Received is one formalin filled container labeled with the patient's name and designated mid frontal scalp. The specimen consists of a (2) pieces shave biopsy measuring 5x6x1, 5x5x1 mm. Jar 0. 3 4:04 PM [facility] DERMATOPATHOLOGY LABORATORY Microscopic Description Specimen A. SKIN, mid frontal scalp: The dermis is infiltrated by nests of basaloid cells that show peripheral palisading and are associated with fibromyxoid stroma. Both mitotic figures and necrotic cells are identified. There are also areas with squamous differentiation and keratinization within the nests. 3 4:04 PM [facility] DERMATOPATHOLOGY LABORATORY Disclaimer An external and internal positive and negative controls are appropriate for the histochemical, immunohistochemical and immunofluorescence stain(s) in this case (if any), except where stated explicitly. The performance characteristics of the stain(s) cited in this report were developed and its performance characteristic determined by the Dermatopathology Laboratory at [facility], directed by Dr. Naga Walsh. These tests need not be, and therefore are not, approved by the [place] Food and Drug Administration. The tests are used for clinical purposes. Billing Codes Specimen Charges Stain Charges 41421 1 3 4:04 PM [facility] DERMATOPATHOLOGY LABORATORY Embedded Images 3 4:04 PM [facility] DERMATOPATHOLOGY LABORATORY Pathology/Cytolog y TISSUE SPECIMEN FROM SKIN / Unknown 02/15/2023 02/19/2023 7:08 AM [facility] us Isreal Clement Jr., MD LAB - PATHOLOGY/CYTOLOG Y ORDERABLES Final Result DERMATOPATHOLOGY LABORATORY [facility] - Department of Dermatology [address] [place] [address], [facility] [phone] documented in this encounter Visit Diagnoses Not on filedocumented in this encounter Care Teams Coal Weigher Relationship Specialty Start Date End Date Jaswant De La Paz MD [address] [place] [address] PCP - General 10/01/18 documented as of this encounter
--- OUTSIDE RECORDS SUMMARY | 2025-02-17 09:05 | XMS_ITS | Clinical Summary ---
Author Organization [facility] [address] [place] [address] [place] [id number] Care Team Providers Care Yarn Texturing Machine Operator Name Role Phone Jaswant De La Paz MD Primary Care Provider Allergies Active Allergy Reactions Criticality Noted Date [...] on file Legal Sex Female 7:57 PM PILOT SUBMERSIBLE Gender Identity Not on file Sexual Orientation Not on file Last Filed Vital Signs Vital Sign Reading Time Taken Comments Blood Pressure 138/73 05/04/2023 7:59 AM PILOT SUBMERSIBLE Pulse 89 05/04/2023 7:59 AM PILOT SUBMERSIBLE Temperature 36.9 C (98.4 F) 12/01/2019 9:02 AM CDT Respiratory Rate - - Oxygen Saturation 98% 05/04/2023 7:59 AM PILOT SUBMERSIBLE Inhaled Oxygen Concentration - - Weight 93.4 [...] patient's age to complete this topic Insurance [facility] Care Teams Yarn Texturing Machine Operator Relationship Specialty Start Date End Date Jaswant De La Paz MD [address] [place] [address] PCP - General Family Medicine 11/24/19
== END 2025-02-17 08:51 | disposition home or self-care (01) ==
LOC: ANHFOHIMG 08:51
PROVIDERS: PCP Family Medicine; Visit Provider Obstetrics & Gynecology
DX: Z12.31 Encounter for screening mammogram for malignant neoplasm of breast (principal); R92.8 Other abnormal and inconclusive findings on diagnostic imaging of breast
CPT/HCPCS: 77063; 77067